=== PATIENT | male | born 1960 | race Caucasian/White ===

== ENCOUNTER 2016-12-07 07:12 | Emergency (ER) | payer BC ==
[~2016-12-07] VITALS: Ht 182.9 cm; Wt 123.9 kg
[~2016-12-07 07:12] MED LIST: AUGMENTIN875 MG PO; Augmentin PO; LOTREL 10/21 CAPSULE PO; NEXIUM40 MG PO; Percocet 5/325,Endoc PO
[2016-12-07 07:57] LABS: HEMATOCRIT 42.7 % (38.0-50.0); MCHC 34.4 G/DL (30.0-36.0); MCV 84.2 FL (86-99); PLATELET COUNT 184 K/uL (156-360); RBC DIS.WIDTH-CV 13.1 % (11.8-14.6); RBC DIS.WIDTH-SD 39.9 % (39-53); RED BLOOD COUNT 5.07 M/uL (4.00-5.50); WHITE BLOOD COUNT 5.8 K/uL (4.1-10.2)
[2016-12-07 08:09] LABS: D-DIMER ELISA 0.32 mg/L FEU (< 0.57)
[2016-12-07 08:21] LABS: TROP-I INTERPRETATION NEGATIVE; TROPONIN-I < 0.01 ng/mL (0.0-0.30)
[2016-12-07 08:30] LABS: CHLORIDE 107 mEq/L (99-109); POTASSIUM 4.1 mEq/L (3.7-5.4); SODIUM 139 mEq/L (136-147)
[2016-12-07 08:32] LABS: GLUCOSE 158 mg/dL (70-99)
[2016-12-07 08:33] LABS: ANION GAP 10 MEQ/L (2-14)
[2016-12-07 08:35] LABS: GFR ESTIMATE (CALCULATED) 52 mL/min/
[2016-12-07 08:36] LABS: UREA NITROGEN (BUN) 15 mg/dL (9-23)
[2016-12-07 10:39] LABS: TROP-I INTERPRETATION NEGATIVE; TROPONIN-I < 0.01 ng/mL (0.0-0.30)
[2016-12-07 11:05] VITALS: BP 121/85
[2016-12-07] MEDS ORDERED: ATIVAN0.5 MG PO (11:10)
== END 2016-12-07 11:15 | disposition home or self-care (01) ==
LOC: EME 07:12
PROVIDERS: Nurse Practitioner Family
DX: R07.9 Chest pain, unspecified (principal); F41.9 Anxiety disorder, unspecified; I10 Essential (primary) hypertension; R68.84 Jaw pain; Z87.891 Personal history of nicotine dependence
CPT/HCPCS: 71020; 80048; 84484; 85027; 85379; 93005; 99281; 99284

== ENCOUNTER 2016-12-09 08:02 | Observation (INO) | payer BC ==
[~2016-12-09] VITALS: Ht 182.9 cm; Wt 123.8 kg
[~2016-12-09 08:02] MED LIST changes: +ATIVAN0.5 MG PO
[2016-12-09] MEDS ORDERED: LEXAPRO5 MG PO (08:26)
[2016-12-09] MEDS ORDERED: LOPRESSOR25 MG PO (08:27)
[2016-12-09 08:46] LABS: HEMATOCRIT 42.8 % (38.0-50.0); MCHC 34.6 G/DL (30.0-36.0); MCV 83.9 FL (86-99); PLATELET COUNT 192 K/uL (156-360); RBC DIS.WIDTH-CV 13.3 % (11.8-14.6); RBC DIS.WIDTH-SD 40.3 % (39-53); WHITE BLOOD COUNT 6.8 K/uL (4.1-10.2)
[2016-12-09 08:54] LABS: CHLORIDE 107 mEq/L (99-109); POTASSIUM 4.2 mEq/L (3.7-5.4); SODIUM 139 mEq/L (136-147)
[2016-12-09 08:55] LABS: GLUCOSE 159 mg/dL (70-99)
[2016-12-09 08:57] LABS: ANION GAP 9 MEQ/L (2-14)
[2016-12-09 08:59] LABS: GFR ESTIMATE (CALCULATED) > 59 mL/min/
[2016-12-09 09:00] LABS: UREA NITROGEN (BUN) 14 mg/dL (9-23)
[2016-12-09 09:07] LABS: TROP-I INTERPRETATION NEGATIVE; TROPONIN-I < 0.01 ng/mL (0.0-0.30)
[2016-12-09] MEDS ORDERED: LO-DOSE ASPIRIN81 M2 PO (09:46)
[2016-12-09] MEDS ORDERED: ECHINACEA167 MG PO (09:47)
[2016-12-09 10:34] LABS: HDL CHOLESTEROL 32 MG/DL (Desirable>=40); LDL CHOLESTEROL 68 mg/dL (Desirable<100); NON-HDL CHOLESTEROL 81 mg/dL (Desirable<160); TOTAL CHOLESTEROL 113 mg/dL (Desirable<200); TRIGLYCERIDES 66 MG/DL (Normal: <150)
[2016-12-09 11:12] LABS: Estimated Average Glucose 146 mg/dL (70-123); HEMOGLOBIN A1c (GLYCOHEMOGLOB) 6.7 % HGB (Below 5.7)
[2016-12-09 12:00] VITALS: BP 107/61
[2016-12-09 12:24] VITALS: BP 121/77
[2016-12-09 16:13] LABS: TROP-I INTERPRETATION NEGATIVE
[2016-12-09 16:18] LABS: TROPONIN-I < 0.01 ng/mL (0.0-0.30)
[2016-12-09] MEDS ORDERED: HYDROCHLOROTH12.5 M3 PO (16:23)
[2016-12-09 16:31] VITALS: BP 118/74
[2016-12-09 18:05] VITALS: BP 113/65
[2016-12-09 19:22] VITALS: BP 95/60
[2016-12-09 21:07] VITALS: BP 128/60
[2016-12-09 22:44] LABS: TROP-I INTERPRETATION NEGATIVE; TROPONIN-I < 0.01 ng/mL (0.0-0.30)
== END 2016-12-09 23:02 | disposition home or self-care (01) ==
LOC: EME 08:02 → EDOF 09:28 → 5WEST 11:31
PROVIDERS: Internal Medicine
DX: R07.9 Chest pain, unspecified (principal); I10 Essential (primary) hypertension; F41.9 Anxiety disorder, unspecified; K21.9 Gastro-esophageal reflux disease without esophagitis; R73.9 Hyperglycemia, unspecified; M54.2 Cervicalgia; R06.02 Shortness of breath; M25.512 Pain in left shoulder; Z91.09 Other allergy status, other than to drugs and biological substances; Z82.49 Family history of ischemic heart disease and other diseases of the circulatory system; Z83.3 Family history of diabetes mellitus
CPT/HCPCS: 71020; 80048; 80061; 83036; 84484; 85027; 93005; 99281; 99285; G0378; J0360; J1650; J2270

== ENCOUNTER 2017-02-23 05:35 | Day surgery (SDC) | payer BC ==
[~2017-02-23] VITALS: Ht 182.9 cm; Wt 122.0 kg
[~2017-02-23 05:35] MED LIST changes: +ECHINACEA167 MG PO; +HYDROCHLOROTH12.5 M3 PO; +LEXAPRO5 MG PO; +LO-DOSE ASPIRIN81 M2 PO; +LOPRESSOR25 MG PO
[2017-02-23 06:32] VITALS: BP 139/85
[2017-02-23 06:33] LABS: HEMATOCRIT 45.7 % (38.0-50.0); MCH 28.1 PG (29.0-34.0); MCHC 32.4 G/DL (30.0-36.0); MCV 86.9 FL (86-99); MEAN PLAT.VOLUME 9.5 uM^3 (9.0-12.4); PLATELET COUNT 202 K/uL (156-360); RBC DIS.WIDTH-CV 13.5 % (11.8-14.6); RBC DIS.WIDTH-SD 42.5 % (39-53); RED BLOOD COUNT 5.26 M/uL (4.00-5.50); WHITE BLOOD COUNT 8.7 K/uL (4.1-10.2)
[2017-02-23] MEDS ORDERED: COLACE100 MG PO (10:24)
[2017-02-23] MEDS ORDERED: PERCOCET 5/31 TABLET PO (10:24)
[2017-02-23 11:41] VITALS: BP 130/73
[2017-02-23 12:40] VITALS: BP 122/70
== END 2017-02-23 13:50 | disposition home or self-care (01) ==
LOC: SDC 05:35
PROVIDERS: Surgery
PROC: 0YU54JZ Supplement Right Inguinal Region with Synthetic Substitute, Percutaneous Endoscopic Approach (ICD-10-PCS; principal; 2017-02-23)
DX: K40.90 Unilateral inguinal hernia, without obstruction or gangrene, not specified as recurrent (principal); F41.9 Anxiety disorder, unspecified; I10 Essential (primary) hypertension; E66.9 Obesity, unspecified; Z68.37 Body mass index [BMI] 37.0-37.9, adult; G47.33 Obstructive sleep apnea (adult) (pediatric); K21.0 Gastro-esophageal reflux disease with esophagitis; Z83.3 Family history of diabetes mellitus; Z82.49 Family history of ischemic heart disease and other diseases of the circulatory system; Z82.5 Family history of asthma and other chronic lower respiratory diseases; Z84.1 Family history of disorders of kidney and ureter; Z80.1 Family history of malignant neoplasm of trachea, bronchus and lung; Z87.891 Personal history of nicotine dependence; Z79.82 Long term (current) use of aspirin
CPT/HCPCS: 85027; C1727; C1781; J0330; J0690; J1100; J1170; J2250; J2405; J3010